=== PATIENT | male | born 2005 ===

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

== ENCOUNTER 2023-06-13 06:31 | Emergency (ER) | payer OTHER ==
[~2023-06-13] VITALS: Ht 172.7 cm; Wt 68.0 kg
[~2023-06-13 06:31] MED LIST changes: +PRED20 PO
[2023-06-13 08:10] VITALS: BP 147/93
[2023-06-13] MEDS ORDERED: SUBOXONE 8 MG-1 EACH SL (10:06)
== END 2023-06-13 10:36 | disposition home or self-care (01) ==
LOC: ER 06:31
DX: F11.13 Opioid abuse with withdrawal (principal); Z51.81 Encounter for therapeutic drug level monitoring; Z79.52 Long term (current) use of systemic steroids
CPT/HCPCS: 99283; A9270

== ENCOUNTER 2024-01-19 04:13 | Emergency (ER) | payer OTHER ==
[~2024-01-19] VITALS: Ht 182.9 cm; Wt 74.8 kg
[~2024-01-19 04:13] MED LIST changes: +SUBOXONE 8 MG-1 EACH SL
[2024-01-19] MEDS ORDERED: Ketorolac Tromethamine 30mg Vial IM ONE (06:35)
[2024-01-19] MEDS ORDERED: Methyl Salicylate/Menth/Camph 57 GM TUBE TOP ONE (06:35)
[2024-01-19] MEDS ORDERED: Methocarbamol 500 MG Tab PO ONE (06:35)
[2024-01-19] MEDS ORDERED: Acetaminophen 500 MG Tab PO ONE (06:35)
[2024-01-19 07:24] VITALS: BP 123/84
[2024-01-19] MEDS ORDERED: Robaxin750 MG PO (08:13)
== END 2024-01-19 08:20 | disposition home or self-care (01) ==
LOC: ER 04:13
DX: M54.42 Lumbago with sciatica, left side (principal)
CPT/HCPCS: 96372; 99283-25; A9270; J1885

== ENCOUNTER 2024-03-24 06:49 | Emergency (ER) | payer OTHER ==
[~2024-03-24] VITALS: Ht 182.9 cm; Wt 74.8 kg
[~2024-03-24 06:49] MED LIST changes: +Robaxin750 MG PO
[2024-03-24 07:12] VITALS: BP 139/90
[2024-03-24] MEDS ORDERED: Methocarbamol 500 MG Tab PO ONE (07:30)
[2024-03-24] MEDS ORDERED: Acetaminophen 500 MG Tab PO ONE (07:30)
[2024-03-24] MEDS ORDERED: Ibuprofen 600 MG Tab PO ONE (07:30)
[2024-03-24] MEDS ORDERED: Methyl Salicylate/Menth/Camph 57 GM TUBE TOP ONE (07:30)
[2024-03-24] MEDS ORDERED: Gabapentin 300 MG Cap PO ONE (08:35)
[2024-03-24] MEDS ORDERED: GABA300 PO (10:21)
== END 2024-03-24 10:40 | disposition home or self-care (01) ==
LOC: ER 06:49
DX: M54.42 Lumbago with sciatica, left side (principal); G89.29 Other chronic pain
CPT/HCPCS: 72100; 99283-25; A9270

== ENCOUNTER 2024-06-10 17:21 | Emergency (ER) | payer OTHER ==
[~2024-06-10] VITALS: Ht 182.9 cm; Wt 74.8 kg
[~2024-06-10 17:21] MED LIST changes: +GABA300 PO
[2024-06-10 18:15] VITALS: BP 149/90
[2024-06-10] MEDS ORDERED: Ketorolac Tromethamine 10 MG Tab PO ONE (19:20)
[2024-06-10] MEDS ORDERED: Robaxin750 MG PO (19:23)
== END 2024-06-10 19:45 | disposition home or self-care (01) ==
LOC: ER 17:21
DX: M54.42 Lumbago with sciatica, left side (principal); Z79.899 Other long term (current) drug therapy
CPT/HCPCS: 99283; A9270